=== PATIENT | male | born 1965 | race American Indian/Alaskan Native ===

== ENCOUNTER 2017-03-09 08:39 | Inpatient (IN) | payer BC ==
[2017-03-09 09:53] LABS: Basophils % (Auto) 0.8 % (0.0-1.8); Eosinophils % (Auto) 1.1 % (0.0-4.3); Hematocrit 44.1 % (35.5-45.6); Hemoglobin 15.5 gm/dl (11.8-15.2); Mean Corpuscular HGB Conc 35 % (32-34); Mean Corpuscular Hemoglobin 31 pg (28-32); Mean Corpuscular Volume 89 fl (84-94); Platelet Count 298 K/mm3 (140-440); Red Blood Count 4.96 M/mm3 (3.65-5.03); White Blood Count 5.8 K/mm3 (4.5-11.0)
[2017-03-09 09:57] LABS: Albumin 4.2 g/dL (3.9-5); Albumin/Globulin Ratio 1.1 %; Alkaline Phosphatase 57 units/L (35-129); Anion Gap 18 mmol/L; Blood Urea Nitrogen 18 mg/dL (9-20); Calcium 10.3 mg/dL (8.4-10.2); Carbon Dioxide 25 mmol/L (22-30); Chloride 97.5 mmol/L (98-107); Glucose 211 mg/dL (75-100); Lipase 77 units/L (13-60); Potassium 4.4 mmol/L (3.6-5.0); Sodium 136 mmol/L (137-145); Total Protein 7.9 g/dL (6.3-8.2)
[2017-03-09 10:05] LABS: Bilirubin,Urine NEG (Negative); Blood,Urine NEG (Negative); Ketones,Urine NEG (Negative); Leukocyte Esterase,Urine NEG (Negative); Mucus,Urine FEW /HPF; Nitrite,Urine NEG (Negative); Protein,Urine <15 mg/dL mg/dL (Negative); RBC,Urine < 1.0 /HPF (0.0-6.0); Urobilinogen,Urine < 2.0 mg/dL (<2.0)
[2017-03-09 10:14] LABS: Alanine Aminotransferase < 5 units/L (7-56)
--- NOTE | 2017-03-09 10:28 | Emergency Department Report ---
ED Abdominal Pain HPI - General Chief Complaint: Abdominal Pain Stated Complaint: STOMACH PROBLEM Time Seen by Provider: 03/09/17 10:18 Source: patient Mode of arrival: Ambulatory Limitations: No Limitations - History of Present Illness Initial Comments: 51-year-old male here with complaint of abdominal pain worsening over the course of the last several months. Patient states she has diffuse pain most often after he eats. Pain can last for a variable amount of time but usually lasted over an hour. No fevers chills nausea vomiting. He is able to tolerate food without difficulty. Said no blood in his stool and no vomiting. -: Gradual Location: diffuse Radiation: none Migration to: no migration Severity: moderate Quality: cramping Improves With: nothing Worsens With: eating - Related Data Allergies Allergy/AdvReac Type Severity Reaction Status Date / Time No Known Allergies Allergy Verified 03/09/17 11:07 ED Review of Systems ROS: Stated complaint: STOMACH PROBLEM Other details as noted in HPI Comment: All other systems reviewed and negative Constitutional: denies: chills, fever Eyes: denies: eye pain, eye discharge, vision change ENT: denies: ear pain, throat pain Respiratory: denies: cough, shortness of breath, wheezing Cardiovascular: denies: chest pain, palpitations Endocrine: no symptoms reported Gastrointestinal: abdominal pain. denies: nausea, diarrhea Genitourinary: denies: urgency, dysuria Musculoskeletal: denies: back pain, joint swelling, arthralgia Skin: denies: rash, lesions Neurological: denies: headache, weakness, paresthesias Psychiatric: denies: anxiety, depression Hematological/Lymphatic: denies: easy bleeding, easy bruising ED Past Medical Hx - Past Medical History Previous Medical History?: Yes Hx Hypertension: Yes Hx Diabetes: Yes Additional medical history: Gastric ulcers - Surgical History Past Surgical History?: No - Family History Family history: no significant - Social History Smoking Status: Never Smoker Substance Use Type: Prescribed ED Physical Exam - General Limitations: No Limitations General appearance: alert, in no apparent distress - Head Head exam: Present: atraumatic, normocephalic - Eye Eye exam: Present: normal appearance. Absent: scleral icterus, conjunctival injection - ENT ENT exam: Present: mucous membranes moist - Neck Neck exam: Present: normal inspection - Respiratory Respiratory exam: Present: normal lung sounds bilaterally. Absent: respiratory distress, wheezes, rales - Cardiovascular Cardiovascular Exam: Present: regular rate, normal rhythm, normal heart sounds. Absent: systolic murmur, diastolic murmur, rubs, gallop - GI/Abdominal GI/Abdominal exam: Present: soft, distended, normal bowel sounds. Absent: tenderness, guarding, rebound, rigid - Rectal Rectal exam: Present: deferred - Extremities Exam Extremities exam: Present: normal inspection - Back Exam Back exam: Present: normal inspection - Neurological Exam Neurological exam: Present: alert, oriented X3 - Psychiatric Psychiatric exam: Present: normal affect, normal mood - Skin Skin exam: Present: warm, dry, intact, normal color. Absent: rash ED Course Vital Signs 03/09/17 03/09/17 09:06 12:00 Temperature 98.9 F 98.6 F Pulse Rate 85 77 Respiratory 18 18 Rate Blood Pressure 153/94 Blood Pressure 163/89 [Left] O2 Sat by Pulse 98 98 Oximetry ED Medical Decision Making - Lab Data Result diagrams: 03/09/17 09:22 03/09/17 09:22 Laboratory Results - last 24 hr 03/09/17 03/09/17 03/09/17 09:14 09:22 09:22 WBC 5.8 RBC 4.96 Hgb 15.5 H Hct 44.1 MCV 89 MCH 31 MCHC 35 H RDW 13.0 L Plt Count 298 Lymph % (Auto) 36.8 H [place] % (Auto) 5.1 Eos % (Auto) 1.1 Baso % (Auto) 0.8 Lymph # 2.1 [place] # 0.3 Eos # 0.1 Baso # 0.0 Seg Neutrophils % 56.2 Seg Neutrophils # 3.3 Sodium 136 L Potassium 4.4 Chloride 97.5 L Carbon Dioxide 25 Anion Gap 18 BUN 18 Creatinine 0.8 Estimated GFR > 60 BUN/Creatinine Ratio 22.50 Glucose 211 H Calcium 10.3 H Total Bilirubin 0.20 AST < 5 L ALT < 5 L Alkaline Phosphatase 57 Total Protein 7.9 Albumin 4.2 Albumin/Globulin Ratio 1.1 Lipase 77 H Urine Color Straw Urine Turbidity Clear Urine pH 6.0 Ur Specific [place] 1.033 H Urine Protein <15 mg/dl Urine Glucose (UA) >=500 Urine Ketones Neg Urine Blood Neg Urine Nitrite Neg Urine Bilirubin Neg Urine Urobilinogen < 2.0 Ur Leukocyte Esterase Neg Urine WBC (Auto) 1.0 Urine RBC (Auto) < 1.0 Urine Mucus Few - Medical Decision Making 51-year-old male with complaint of abdominal pain. Patient states that he is having intermittent pain. Worse with eating. Patient's lipase is slightly elevated at 77. Given this finding plan a chest CT abdomen that I do not suspect find significant intra-abdominal pathology. CT shows intra-abdominal mass. Discussed this case with the hospitalist and plan to admit for inpatient biopsy of mass to determine an etiology. The patient with continued abdominal pain. Given an second dose of morphine. Portions of this chart were dictated with dictation software. There may be dictation errors contained within this note. Critical care attestation.: If time is entered above; I have spent that time in minutes in the direct care of this critically ill patient, excluding procedure time. ED Disposition Clinical Impression: Abdominal pain, Intraabdominal mass Disposition: [id number] OP ADMIT IP TO THIS HOSP Is pt being admited?: Yes Condition: Stable
[2017-03-09] MEDS ORDERED: NACL ONE (10:55)
[2017-03-09] MEDS ORDERED: MORPHINE IV ONE (12:08)
[2017-03-09] MEDS ORDERED: ZOFRAN IV ONE (12:08)
--- NOTE | 2017-03-09 12:23 | Cat Scan Report ---
CT ABDOMEN AND PELVIS WITH CONTRAST INDICATION: Abdominal pain. COMPARISON: None similar. FINDINGS: Abdomen and pelvis CT performed following intravenous administration of 100 cc of Omnipaque 300. LUNG BASES: Nonspecific distal esophageal wall prominence/thickening, not excluded for gastroesophageal reflux and/or hiatal hernia, amongst others. Mildly elevated right hemidiaphragm. ABDOMEN: Approximately 5.8 cm AP x 6.1 cm transverse x 7.3 cm craniocaudal enhancing mid mesenteric soft tissue mass with a hypodense/necrotic center noted near midline and slightly to the right as on axial images 190-250, series 2. No other size significant adenopathy or ascites with few subcentimeter retroperitoneal lymph nodes. Slight intrahepatic biliary prominence with CBD caliber approximately 1 cm at the janna hepatis, though rapidly tapering to 0.5 cm distally near the ampulla. Pancreatic duct visible in the neck/proximal body with approximately 3 mm caliber. Otherwise unremarkable liver, spleen, gallbladder, pancreas, adrenals, aorta, IVC and and kidneys. Nonspecific GI tract evaluation limited, though grossly nonobstructive. Normal appendix. Mild to moderate colonic stool/possible constipation. Small fat containing umbilical hernia with a transverse neck of 2 cm. A right paramidline fat containing ventral hernia with a transverse neck of 1.2 cm also noted, approximately 6.5 cm above the umbilicus. PELVIS: Urinary bladder, seminal vesicles, prostate and rectosigmoid within normal limits. Few small phleboliths. Fat-containing right inguinal hernia with a diameter of 2.4 cm proximally, axial image 362, series 2. Mild multilevel spinal degenerative spurring. CONCLUSION: 1. Large, approximately 6-7 cm mesenteric soft tissue lymph node mass, suspected neoplastic/metastatic, including carcinoid tumor or lymphoma, amongst others. This would be amenable to percutaneous CT-guided biopsy, if so warranted. 2. Few other findings, including small fat containing ventral hernia, amongst others, as above. Thank you for the opportunity to participate in this patient's care.
--- NOTE | 2017-03-09 13:51 | Admit Criteria Form ---
<EDMUNDO BUSH - Last Filed: 03/10/17 11:51> Admission Criteria Documentation: ABDOMINAL PAIN Clinical Indications for Admission to Inpatient Care ( [place]check or initial the applicable condition/criteria): Admission is indicated for ANY ONE of the following (1)(2)(3)(4)(5)(6): [ ]I. Surgery needed that cannot be performed on ambulatory basis [ ]II. Peritoneal signs present (eg, rebound tenderness, rigidity) [ ]III. Evaluation requires patient to not eat or drink for extended period ( eg, more than 24 hours). [X ]IV. Inpatient admission required[B] rather than observation care (see Abdominal Pain: Observation Care guideline as appropriate) because of ANY ONE of the following(7)(8)(9): [ ] a) Hemodynamic instability [ ]b) Severe pain requiring acute inpatient management [ ]c) Identification of etiology or finding that requires inpatient care (eg, aortic dissection, free air,bowel ischemia)(10) [ ]d) Absent bowel sounds with complete ileus (11) [ ]e) Signs of intestinal obstruction[C] [ ]f) Suspected toxic megacolon [ ]g) Severe electrolyte abnormalities requiring inpatient care [ ]h) High fever or infection requiring inpatient admission as indicated by ANY ONE of the following (12)(13): [ ]i) Appropriate outpatient or observation care antimicrobial treatment unavailable, not effective, or not feasible [ ]ii) Documented bacteremia [ ]iii) Temperature greater than 104.9 degrees F (40.5 degrees C) (oral) [ ]iv) Temperature greater than 103.1 degrees F (39.5 degrees C) ( oral) or less than 96.8 degrees F (36 degrees C) (rectal) that does not respond to all emergency treatment measures [ ]i) IV fluid required rather than oral rehydration to replace significant ongoing (eg, for greater than 24 hours) losses (greater than 3 L/m2 per day)(14)(15) [ ]j) Percutaneous or open drainage (eg, abscess, biliary tract) procedures [ ]k) Parenteral nutrition regimen that must be implemented on inpatient basis [X ]l) Other condition, treatment, or monitoring requiring inpatient admission Extended stay beyond goal length of stay may be needed for (1)(3)(4)(10)(16): [ ]a) Surgery (e.g., colectomy, revascularization procedure) [ ]b) Persistent abdominal pain with suspected intra-abdominal process [ ]c) Diagnosed condition requiring continued stay (e.g., pancreatitis, complicated diverticulitis) The original [facility] content created by [facility] has been revised. The portions of the content which have been revised are identified through the use of italic text or in bold, and [facility] has neither reviewed nor approved the modified material.All other unmodified content is copyright [facility]. Please see references footnoted in the original [facility] edition 2017 Admission Criteria Met: Yes <ORLY ROMAN - Last Filed: 03/12/17 16:38> Admission Criteria Documentation: I am administratively signing this note. This note has no clinical bearing on the patient's admission status.
--- NOTE | 2017-03-09 20:36 | History and Physical Report ---
History of Present Illness Date of examination: 03/09/17 Date of admission: 03/09/17 Chief complaint: Abd pain off and on for one month History of present illness: - History of Present Illness 51-year-old male here with complaint of abdominal pain worsening over the course of the last several months. Patient states he has diffuse pain most often after he eats. Pain can last for a variable amount of time but usually lasted over an hour. No fevers chills nausea vomiting. He is able to tolerate food without difficulty. Said no blood in his stool and no vomiting.Pain is 7/ 10.Intermittent in nature.Precipitated by eating.Reieving factor-not eating .No weight loss. Past Medical History Hx Hypertension: Yes Hx Diabetes: Yes Additional medical history: Gastric ulcers -Surgical History Past Surgical History?: No Family History Family history: no significant - Social History Smoking Status: Never Smoker Substance Use Type: Prescribed Review of Systems Stated complaint: STOMACH PROBLEM Other details as noted in HPI Comment: All other systems reviewed and negative Constitutional: denies: chills, fever Eyes: denies: eye pain, eye discharge, vision change ENT: denies: ear pain, throat pain Respiratory: denies: cough, shortness of breath, wheezing Cardiovascular: denies: chest pain, palpitations Endocrine: no symptoms reported Gastrointestinal: abdominal pain. denies: nausea, diarrhea Genitourinary: denies: urgency, dysuria Musculoskeletal: denies: back pain, joint swelling, arthralgia Skin: denies: rash, lesions Neurological: denies: headache, weakness, paresthesias Psychiatric: denies: anxiety, depression Hematological/Lymphatic: denies: easy bleeding, easy bruising Medications and Allergies Allergies Allergy/AdvReac Type Severity Reaction Status Date / Time No Known Allergies Allergy Verified 03/09/17 11:07 Home Medications Medication Instructions Recorded Confirmed Last Taken Type Brimonidine 0.15% [Alphagan P 1 drop OU BID 03/09/17 03/09/17 Unknown History 0.15%] Canagliflozin [Invokana] 100 mg PO QDAY 03/09/17 03/09/17 Unknown History Fenofibrate [Tricor] 145 mg PO QHS 03/09/17 03/09/17 Unknown History Glimepiride [Amaryl] 4 mg PO QDAY 03/09/17 03/09/17 Unknown History Lisinopril [Zestril] 40 mg PO QDAY 03/09/17 03/09/17 Unknown History Saxagliptin HCl/Metformin HCl 1 tab PO QDAY 03/09/17 03/09/17 Unknown History [Kombiglyze XR 2.5-1,000 mg] Tadalafil [Cialis] 5 mg PO QDAY 03/09/17 03/09/17 Unknown History Travoprost (Benzalkonium) 1 drop OU QHS 03/09/17 03/09/17 Unknown History [Travoprost 0.004% Eye Drop] Exam - Physical Exam Narrative exam: Lying comfortably - Constitutional Vitals: Temp Pulse Resp BP Pulse Ox 98 F 65 17 144/83 98 03/09/17 16:02 03/09/17 16:02 03/09/17 16:02 03/09/17 16:02 03/09/17 16:02 General appearance: Present: no acute distress, well-nourished - EENT Eyes: Present: PERRL ENT: hearing intact, clear oral mucosa - Neck Neck: Present: supple, normal ROM - Respiratory Respiratory effort: normal Respiratory: bilateral: CTA - Cardiovascular Heart rate: 80 Rhythm: regular Heart Sounds: Present: S1 & S2. Absent: rub, click - Extremities Extremities: no ischemia, pulses intact, pulses symmetrical, No edema Peripheral Pulses: within normal limits - Abdominal General gastrointestinal: Present: soft, non-tender, non-distended, normal bowel sounds Localized gastrointestinal: mass: epigastric periumbilical (Firm ) Male genitourinary: Present: normal - Rectal Rectal Exam: other (ob negative) - Integumentary Integumentary: Present: clear, warm, dry - Musculoskeletal Musculoskeletal: gait normal, strength equal bilaterally - Psychiatric Psychiatric: appropriate mood/affect, intact judgment & insight - Neurologic Neurologic: CNII-XII intact, moves all extremities Results - Labs CBC & Chem 7: 03/09/17 09:22 03/09/17 09:22 Labs: Laboratory Last Values WBC 5.8 K/mm3 (4.5-11.0) 03/09/17 09:22 RBC 4.96 M/mm3 (3.65-5.03) 03/09/17 09:22 Hgb 15.5 gm/dl (11.8-15.2) H 03/09/17 09:22 Hct 44.1 % (35.5-45.6) 03/09/17 09:22 MCV 89 fl (84-94) 03/09/17 09:22 MCH 31 pg (28-32) 03/09/17 09:22 MCHC 35 % (32-34) H 03/09/17 09:22 RDW 13.0 % (13.2-15.2) L 03/09/17 09:22 Plt Count 298 K/mm3 (140-440) 03/09/17 09:22 Lymph % (Auto) 36.8 % (13.4-35.0) H 03/09/17 09:22 [place] % (Auto) 5.1 % (0.0-7.3) 03/09/17 09:22 Eos % (Auto) 1.1 % (0.0-4.3) 03/09/17 09:22 Baso % (Auto) 0.8 % (0.0-1.8) 03/09/17 09:22 Lymph # 2.1 K/mm3 (1.2-5.4) 03/09/17 09:22 [place] # 0.3 K/mm3 (0.0-0.8) 03/09/17 09:22 Eos # 0.1 K/mm3 (0.0-0.4) 03/09/17 09:22 Baso # 0.0 K/mm3 (0.0-0.1) 03/09/17 09:22 Seg Neutrophils % 56.2 % (40.0-70.0) 03/09/17 09:22 Seg Neutrophils # 3.3 K/mm3 (1.8-7.7) 03/09/17 09:22 Sodium 136 mmol/L (137-145) L 03/09/17 09:22 Potassium 4.4 mmol/L (3.6-5.0) 03/09/17 09:22 Chloride 97.5 mmol/L (98-107) L 03/09/17 09:22 Carbon Dioxide 25 mmol/L (22-30) 03/09/17 09:22 Anion Gap 18 mmol/L 03/09/17 09:22 BUN 18 mg/dL (9-20) 03/09/17 09:22 Creatinine 0.8 mg/dL (0.8-1.5) 03/09/17 09:22 Estimated GFR > 60 ml/min 03/09/17 09:22 BUN/Creatinine Ratio 22.50 % 03/09/17 09:22 Glucose 211 mg/dL (75-100) H 03/09/17 09:22 Calcium 10.3 mg/dL (8.4-10.2) H 03/09/17 09:22 Total Bilirubin 0.20 mg/dL (0.1-1.2) 03/09/17 09:22 AST < 5 units/L (5-40) L 03/09/17 09:22 ALT < 5 units/L (7-56) L 03/09/17 09:22 Alkaline Phosphatase 57 units/L (35-129) 03/09/17 09:22 Total Protein 7.9 g/dL (6.3-8.2) 03/09/17 09:22 Albumin 4.2 g/dL (3.9-5) 03/09/17 09:22 Albumin/Globulin Ratio 1.1 % 03/09/17 09:22 Lipase 77 units/L (13-60) H 03/09/17 09:22 Urine Color Straw (Yellow) 03/09/17 09:14 Urine Turbidity Clear (Clear) 03/09/17 09:14 Urine pH 6.0 (5.0-7.0) 03/09/17 09:14 Ur Specific [place] 1.033 (1.003-1.030) H 03/09/17 09:14 Urine Protein <15 mg/dl mg/dL (Negative) 03/09/17 09:14 Urine Glucose (UA) >=500 mg/dL (Negative) 03/09/17 09:14 Urine Ketones Neg mg/dL (Negative) 03/09/17 09:14 Urine Blood Neg (Negative) 03/09/17 09:14 Urine Nitrite Neg (Negative) 03/09/17 09:14 Urine Bilirubin Neg (Negative) 03/09/17 09:14 Urine Urobilinogen < 2.0 mg/dL (<2.0) 03/09/17 09:14 Ur Leukocyte Esterase Neg (Negative) 03/09/17 09:14 Urine WBC (Auto) 1.0 /HPF (0.0-6.0) 03/09/17 09:14 Urine RBC (Auto) < 1.0 /HPF (0.0-6.0) 03/09/17 09:14 Urine Mucus Few /HPF 03/09/17 09:14 Short CBC 03/09/17 Range/Units 09:22 WBC 5.8 (4.5-11.0) K/mm3 Hgb 15.5 H (11.8-15.2) gm/dl Hct 44.1 (35.5-45.6) % Plt Count 298 (140-440) K/mm3 BMP 03/09/17 09:22 Sodium 136 L Potassium 4.4 Chloride 97.5 L Carbon Dioxide 25 BUN 18 Creatinine 0.8 Glucose 211 H Calcium 10.3 H Liver Function 03/09/17 Range/Units 09:22 Total Bilirubin 0.20 (0.1-1.2) mg/dL AST < 5 L (5-40) units/L ALT < 5 L (7-56) units/L Alkaline Phosphatase 57 (35-129) units/L Albumin 4.2 (3.9-5) g/dL Urine 03/09/17 Range/Units 09:14 Urine Color Straw (Yellow) Urine pH 6.0 (5.0-7.0) Ur Specific [place] 1.033 H (1.003-1.030) Urine Protein <15 mg/dl (Negative) mg/dL Urine Glucose (UA) >=500 (Negative) mg/dL - Imaging and Cardiology EKG: report reviewed CT scan - abdomen: report reviewed (6 to 7 cm mesenteric soft tissue /Lymph node mass suspected neoplastic/metastatic, including carcinoid tumor or Lymphoma.) Assessment and Plan Advance Directives: Yes (Full code) VTE prophylaxis?: Chemical Plan of care discussed with patient/family: Yes - Patient Problems (1) Intraabdominal mass Current Visit: Yes Status: Acute Plan to address problem: Ordered CT guided biopsy. Oncology consult requested. Symptomatic treatment for now. DDX-Lymphoma versus colon cancer (2) HTN (hypertension) Current Visit: Yes Status: Chronic Qualifiers: Hypertension type: essential hypertension Qualified Code(s): I10 - Essential (primary) hypertension Plan to address problem: Cont antihypertensives (3) T2DM (type 2 diabetes mellitus) Current Visit: Yes Status: Chronic Qualifiers: Diabetes mellitus complication status: without complication Diabetes mellitus complication detail: D Diabetic retinopathy severity: D Proliferative retinopathy type: P Diabetes mellitus macular edema: D Diabetes mellitus halfway insulin use: without halfway use Laterality: L Chronic kidney disease stage: C Qualified Code(s): E11.9 - Type 2 diabetes mellitus without complications Plan to address problem: Cont oral hypoglycemics and coverage.Check A1c. (4) DVT prophylaxis Current Visit: Yes Status: Acute Plan to address problem: Initiated Lovenox 40 mg sq qd
[2017-03-09] MEDS ORDERED: TYLENOL PO PRN (20:46)
[2017-03-09] MEDS ORDERED: MILK OF MAGNESIA PO PRN (20:46)
[2017-03-09] MEDS ORDERED: ZOFRAN IV PRN (20:46)
[2017-03-09] MEDS ORDERED: DULCOLAX PR PRN (20:46)
[2017-03-09] MEDS ORDERED: NOVOLOG SUB-Q ONE (20:52)
[2017-03-09] MEDS ORDERED: NACL 0.9% 1000 ML 1,000 ML IV SCH (21:00)
[2017-03-09] MEDS ORDERED: PROTONIX IV SCH (22:00)
[2017-03-09] MEDS ORDERED: XALATAN 0.005% OU SCH (22:00)
[2017-03-09] MEDS ORDERED: TRICOR PO SCH (22:00)
[2017-03-09] MEDS: ALPHAGAN P 0.15% OU SCH (23:21)
[2017-03-10 07:19] LABS: Partial Thromboplastin Time 29.2 Sec. (24.2-36.6)
[2017-03-10] MEDS ORDERED: AMARYL PO SCH (08:00)
[2017-03-10] MEDS ORDERED: GLUCOPHAGE XR PO SCH (08:00)
--- NOTE | 2017-03-10 08:53 | Progress Note ---
Assessment and Plan Assessment and plan: 51-year-old male With past medical hx of HTN, DM admitted with worsening abdominal pain over several months, worse with food, rated 7/10 and on admission noted to have mesenteric soft tissue lymph node mass 6-7cm in size. Intraabdominal mass with Mesenteric enlarged lymphnode * Agree with CT guided biopsy * GI and Oncology consult Peritoneal irritation secondary to above * Pain control Type 2 uncontrolled DM * Discontinue metformin and amaryl to prevent acidosis and hypoglycemic episodeds * start on Levemir qhs and sliding scale coverage HTN * Continue BP control DVT/GI prophy Plan of care discussed with patient in detail Hospitalist Physical - Constitutional Vitals: Temp Pulse Resp BP Pulse Ox 98.7 F 76 18 120/76 98 03/10/17 08:00 03/10/17 08:00 03/10/17 08:00 03/10/17 08:00 03/10/17 08:00 General appearance: Present: no acute distress, well-nourished Results - Labs CBC & Chem 7: 03/09/17 09:22 03/09/17 09:22 Labs: Laboratory Last Values WBC 5.8 K/mm3 (4.5-11.0) 03/09/17 09:22 RBC 4.96 M/mm3 (3.65-5.03) 03/09/17 09:22 Hgb 15.5 gm/dl (11.8-15.2) H 03/09/17 09:22 Hct 44.1 % (35.5-45.6) 03/09/17 09:22 MCV 89 fl (84-94) 03/09/17 09:22 MCH 31 pg (28-32) 03/09/17 09:22 MCHC 35 % (32-34) H 03/09/17 09:22 RDW 13.0 % (13.2-15.2) L 03/09/17 09:22 Plt Count 298 K/mm3 (140-440) 03/09/17 09:22 Lymph % (Auto) 36.8 % (13.4-35.0) H 03/09/17 09:22 [place] % (Auto) 5.1 % (0.0-7.3) 03/09/17 09:22 Eos % (Auto) 1.1 % (0.0-4.3) 03/09/17 09:22 Baso % (Auto) 0.8 % (0.0-1.8) 03/09/17 09:22 Lymph # 2.1 K/mm3 (1.2-5.4) 03/09/17 09:22 [place] # 0.3 K/mm3 (0.0-0.8) 03/09/17 09:22 Eos # 0.1 K/mm3 (0.0-0.4) 03/09/17 09:22 Baso # 0.0 K/mm3 (0.0-0.1) 03/09/17 09:22 Seg Neutrophils % 56.2 % (40.0-70.0) 03/09/17 09:22 Seg Neutrophils # 3.3 K/mm3 (1.8-7.7) 03/09/17 09:22 PT 13.1 Sec. (12.2-14.9) 03/10/17 06:49 INR 1.00 (0.87-1.13) 03/10/17 06:49 APTT 29.2 Sec. (24.2-36.6) 03/10/17 06:49 Sodium 136 mmol/L (137-145) L 03/09/17 09:22 Potassium 4.4 mmol/L (3.6-5.0) 03/09/17 09:22 Chloride 97.5 mmol/L (98-107) L 03/09/17 09:22 Carbon Dioxide 25 mmol/L (22-30) 03/09/17 09:22 Anion Gap 18 mmol/L 03/09/17 09:22 BUN 18 mg/dL (9-20) 03/09/17 09:22 Creatinine 0.8 mg/dL (0.8-1.5) 03/09/17 09:22 Estimated GFR > 60 ml/min 03/09/17 09:22 BUN/Creatinine Ratio 22.50 % 03/09/17 09:22 Glucose 211 mg/dL (75-100) H 03/09/17 09:22 Calcium 10.3 mg/dL (8.4-10.2) H 03/09/17 09:22 Total Bilirubin 0.20 mg/dL (0.1-1.2) 03/09/17 09:22 AST < 5 units/L (5-40) L 03/09/17 09:22 ALT < 5 units/L (7-56) L 03/09/17 09:22 Alkaline Phosphatase 57 units/L (35-129) 03/09/17 09:22 Total Protein 7.9 g/dL (6.3-8.2) 03/09/17 09:22 Albumin 4.2 g/dL (3.9-5) 03/09/17 09:22 Albumin/Globulin Ratio 1.1 % 03/09/17 09:22 Lipase 77 units/L (13-60) H 03/09/17 09:22 Urine Color Straw (Yellow) 03/09/17 09:14 Urine Turbidity Clear (Clear) 03/09/17 09:14 Urine pH 6.0 (5.0-7.0) 03/09/17 09:14 Ur Specific [place] 1.033 (1.003-1.030) H 03/09/17 09:14 Urine Protein <15 mg/dl mg/dL (Negative) 03/09/17 09:14 Urine Glucose (UA) >=500 mg/dL (Negative) 03/09/17 09:14 Urine Ketones Neg mg/dL (Negative) 03/09/17 09:14 Urine Blood Neg (Negative) 03/09/17 09:14 Urine Nitrite Neg (Negative) 03/09/17 09:14 Urine Bilirubin Neg (Negative) 03/09/17 09:14 Urine Urobilinogen < 2.0 mg/dL (<2.0) 03/09/17 09:14 Ur Leukocyte Esterase Neg (Negative) 03/09/17 09:14 Urine WBC (Auto) 1.0 /HPF (0.0-6.0) 03/09/17 09:14 Urine RBC (Auto) < 1.0 /HPF (0.0-6.0) 03/09/17 09:14 Urine Mucus Few /HPF 03/09/17 09:14
[2017-03-10] MEDS ORDERED: VERSED IV ONE ×2 (09:33)
[2017-03-10] MEDS ORDERED: SUBLIMAZE ONE (09:33)
[2017-03-10] MEDS ORDERED: NON-FORMULARY (Canagliflozin [Invokana] 100 MG) PO SCH (10:00)
[2017-03-10] MEDS ORDERED: SAXAGLIPTIN HCL PO SCH (10:00)
[2017-03-10] MEDS ORDERED: ZESTRIL PO SCH (10:00)
[2017-03-10] MEDS ORDERED: METFORMIN HCL PO SCH (10:00)
[2017-03-10] MEDS ORDERED: PEPCID IV SCH (10:00)
[2017-03-10] MEDS ORDERED: TRADJENTA PO SCH (10:00)
[2017-03-10] MEDS ORDERED: SUBLIMAZE IV ONE (11:00)
--- NOTE | 2017-03-10 11:08 | Cat Scan Report ---
CT-guided biopsy of mesenteric abdominal mass. Procedure: The patient's skin surface overlying the right abdomen was prepped and draped using sterile technique. Local anesthetic was injected into the skin. Using CT guidance, a 17-gauge sheath needle was advanced into the mass. 5 passes were made using an 18-gauge biopsy gun. Adequate tissue cores were obtained. Initial touch prep slides demonstrated abnormal lymphoid cells and the procedure was terminated. The Intraservice time was 45 minutes. Independent cardiorespiratory monitoring was performed by the outpatient procedure nurse for 45 minutes, supervised by me. The patient tolerated the procedure well clinically. Post biopsy images demonstrated no evidence of significant hemorrhage or other signs of complications. The patient was sent to the outpatient procedure unit for short term observation.
--- NOTE | 2017-03-10 11:12 | Short Stay Summary ---
Short Stay Documentation Date of service: 03/10/17 - History Principal diagnosis: Abd. mass - Allergies and Medications Current Medications: Allergies No Known Allergies Allergy (Verified 03/09/17 11:07) Home Medications Medication Instructions Recorded Confirmed Last Taken Type Brimonidine 0.15% [Alphagan P 1 drop OU BID 03/09/17 03/09/17 Unknown History 0.15%] Canagliflozin [Invokana] 100 mg PO QDAY 03/09/17 03/09/17 Unknown History Fenofibrate [Tricor] 145 mg PO QHS 03/09/17 03/09/17 Unknown History Glimepiride [Amaryl] 4 mg PO QDAY 03/09/17 03/09/17 Unknown History Lisinopril [Zestril] 40 mg PO QDAY 03/09/17 03/09/17 Unknown History Saxagliptin HCl/Metformin HCl 1 tab PO QDAY 03/09/17 03/09/17 Unknown History [Kombiglyze XR 2.5-1,000 mg] Tadalafil [Cialis] 5 mg PO QDAY 03/09/17 03/09/17 Unknown History Travoprost (Benzalkonium) 1 drop OU QHS 03/09/17 03/09/17 Unknown History [Travoprost 0.004% Eye Drop] Active Medications Acetaminophen (Tylenol) 650 mg PO Q4H PRN PRN Reason: Pain MILD(1-3)/Fever >100.5/[place] Bisacodyl (Dulcolax) 10 mg [place] QDAY PRN PRN Reason: Constipation unrelieved by MOM Brimonidine Tartrate (Alphagan P 0.15%) 1 drops OU BID [facility] Last Admin: 03/09/17 23:21 Dose: Not Given Famotidine (Pepcid) 20 mg IV BID [place] Fenofibrate (Tricor) 145 mg PO QHS [facility] Last Admin: 03/09/17 23:28 Dose: 145 mg Insulin Aspart (Novolog) 0 units SUB-Q ACHS [facility] PRN Reason: Protocol Insulin Detemir (Levemir) 15 units SUB-Q QHS [facility] Latanoprost (Xalatan 0.005%) 1 drops OU QHS [facility] Last Admin: 03/09/17 23:21 Dose: Not Given Linagliptin (Tradjenta) 5 mg PO QDAY [facility] Lisinopril (Zestril) 40 mg PO QDAY [facility] Magnesium Hydroxide (Milk Of Magnesia) 30 ml PO Q4H PRN PRN Reason: Constipation Miscellaneous Medication (Canagliflozin [Invokana]) 100 mg PO QDAY [facility] Ondansetron HCl (Zofran) 4 mg IV Q8H PRN PRN Reason: N/V unrelieved by Reglan - Physical exam General appearance: no acute distress Extremities: no ischemia, pulses intact, pulses symmetrical, No edema - Brief post op/procedure progress note Date of procedure: 03/10/17 Pre-op diagnosis: Abd. mass Post-op diagnosis: same Anesthesia: local Surgeon: NORMAN MILTON Estimated blood loss: none Specimen disposition: to lab Condition: stable - Disposition Condition at discharge: Good Disposition: DC-01 TO HOME OR SELFCARE Short Stay Discharge Plan Follow up with: PRIMARY CARE, [Primary Care Provider] - 3-5 Days
--- NOTE | 2017-03-10 12:54 | Hem/Onc Consultation ---
History of Present Illness - Reason for Consult Consult date: 03/10/17 - History of Present Illness He feels well overall. No complains. Admitted wit abdominal pain which has disappeared. No complains currently. Past History Past Medical History: diabetes, hypertension (elevated cholesterol) Past Surgical History: Other (Bleeding ulcer 6 years ago) Medications and Allergies Allergies Allergy/AdvReac Type Severity Reaction Status Date / Time No Known Allergies Allergy Verified 03/09/17 11:07 Home Medications Medication Instructions Recorded Confirmed Last Taken Type Brimonidine 0.15% [Alphagan P 1 drop OU BID 03/09/17 03/09/17 Unknown History 0.15%] Canagliflozin [Invokana] 100 mg PO QDAY 03/09/17 03/09/17 Unknown History Fenofibrate [Tricor] 145 mg PO QHS 03/09/17 03/09/17 Unknown History Glimepiride [Amaryl] 4 mg PO QDAY 03/09/17 03/09/17 Unknown History Lisinopril [Zestril] 40 mg PO QDAY 03/09/17 03/09/17 Unknown History Saxagliptin HCl/Metformin HCl 1 tab PO QDAY 03/09/17 03/09/17 Unknown History [Kombiglyze XR 2.5-1,000 mg] Tadalafil [Cialis] 5 mg PO QDAY 03/09/17 03/09/17 Unknown History Travoprost (Benzalkonium) 1 drop OU QHS 03/09/17 03/09/17 Unknown History [Travoprost 0.004% Eye Drop] Active Meds: Active Medications Acetaminophen (Tylenol) 650 mg PO Q4H PRN PRN Reason: Pain MILD(1-3)/Fever >100.5/[place] Bisacodyl (Dulcolax) 10 mg [place] QDAY PRN PRN Reason: Constipation unrelieved by MOM Brimonidine Tartrate (Alphagan P 0.15%) 1 drops OU BID [facility] Last Admin: 03/09/17 23:21 Dose: Not Given Famotidine (Pepcid) 20 mg IV BID [place] Fenofibrate (Tricor) 145 mg PO QHS [facility] Last Admin: 03/09/17 23:28 Dose: 145 mg Insulin Aspart (Novolog) 0 units SUB-Q ACHS [facility] PRN Reason: Protocol Insulin Detemir (Levemir) 15 units SUB-Q QHS [facility] Latanoprost (Xalatan 0.005%) 1 drops OU QHS [facility] Last Admin: 03/09/17 23:21 Dose: Not Given Linagliptin (Tradjenta) 5 mg PO QDAY [facility] Lisinopril (Zestril) 40 mg PO QDAY [facility] Magnesium Hydroxide (Milk Of Magnesia) 30 ml PO Q4H PRN PRN Reason: Constipation Miscellaneous Medication (Canagliflozin [Invokana]) 100 mg PO QDAY [facility] Ondansetron HCl (Zofran) 4 mg IV Q8H PRN PRN Reason: N/V unrelieved by Reglan Review of Systems All systems: negative (old pain) Exam - Constitutional Vitals: Last Vital Signs Temp 98.7 F 03/10/17 08:00 Pulse 77 03/10/17 10:33 Resp 12 03/10/17 10:33 BP 134/76 03/10/17 10:33 Pulse Ox 99 03/10/17 10:33 Pain Intensity (0-10): denies any pain General appearance: no acute distress - EENT Eyes: PERRL ENT: hearing intact Lymph node exam: negative cervical - Neck Neck: supple, normal ROM - Respiratory Respiratory: bilateral: CTA - Cardiovascular Rhythm: regular Extremities: no ischemia - Gastrointestinal General gastrointestinal: Present: soft - Genitourinary Male genitourinary: Present: normal - Integumentary Integumentary: clear - Musculoskeletal Musculoskeletal: strength equal bilaterally - Neurologic Neurologic: CNII-XII intact - Psychiatric Psychiatric: appropriate mood/affect Results - Labs lab Results: Laboratory Results - last 24 hr 03/10/17 03/10/17 06:49 12:04 PT 13.1 INR 1.00 APTT 29.2 POC Glucose 313 H - Imaging and cardiology CT scan - abdomen: report reviewed, image reviewed Assessment and Plan - Patient Problems (1) Intraabdominal mass Current Visit: Yes Status: Acute Plan to address problem: He had biopsy. Gave appt to see us next Thursday or . Possibly GIST vs lymphoma. Met with his . They agree to follow up plans.
--- NOTE | 2017-03-10 14:07 | Gastroenterology Consultation ---
<SADE SHELBY - Last Filed: 03/10/17 14:09> History of Present Illness - Reason for Consult Consult date: 03/10/[address] scan, abdominal pain Requesting physician: VLADIMIR DE SOUZA - History of Present Illness Mr. Gilman is a 51 y/o male admitted with a 1 week hx of abdominal cramping after he eats. No N/V, no diarrhea, no evidence of bleeding. He endorses approximately a 10 lbs weight loss, but states he has been trying to lose weight 2/[address] scan on admission revealing 5x6 cm soft tissues mesenteric mass vs lymph node. He has been seen by oncology and s/p CT guided biopsy today. He denies current abdominal pain. He reports he once had a " bleeding ulcer" several years ago. His pain is generalized and described as cramping. He has no loss of appetite. Past History Past Medical History: diabetes, hypertension (elevated cholesterol) Past Surgical History: Other (Bleeding ulcer 6 years ago) Social history: no significant social history Family history: no significant family history Medications and Allergies Allergies Allergy/AdvReac Type Severity Reaction Status Date / Time No Known Allergies Allergy Verified 03/09/17 11:07 Home Medications Medication Instructions Recorded Confirmed Last Taken Type Brimonidine 0.15% [Alphagan P 1 drop OU BID 03/09/17 03/09/17 Unknown History 0.15%] Canagliflozin [Invokana] 100 mg PO QDAY 03/09/17 03/09/17 Unknown History Fenofibrate [Tricor] 145 mg PO QHS 03/09/17 03/09/17 Unknown History Glimepiride [Amaryl] 4 mg PO QDAY 03/09/17 03/09/17 Unknown History Lisinopril [Zestril] 40 mg PO QDAY 03/09/17 03/09/17 Unknown History Saxagliptin HCl/Metformin HCl 1 tab PO QDAY 03/09/17 03/09/17 Unknown History [Kombiglyze XR 2.5-1,000 mg] Tadalafil [Cialis] 5 mg PO QDAY 03/09/17 03/09/17 Unknown History Travoprost (Benzalkonium) 1 drop OU QHS 03/09/17 03/09/17 Unknown History [Travoprost 0.004% Eye Drop] Active Meds: Active Medications Acetaminophen (Tylenol) 650 mg PO Q4H PRN PRN Reason: Pain MILD(1-3)/Fever >100.5/[place] Bisacodyl (Dulcolax) 10 mg [place] QDAY PRN PRN Reason: Constipation unrelieved by MOM Brimonidine Tartrate (Alphagan P 0.15%) 1 drops OU BID [facility] Last Admin: 03/09/17 23:21 Dose: Not Given Famotidine (Pepcid) 20 mg IV BID [facility] Fenofibrate (Tricor) 145 mg PO QHS [facility] Last Admin: 03/09/17 23:28 Dose: 145 mg Insulin Aspart (Novolog) 0 units SUB-Q ACHS [facility] PRN Reason: Protocol Insulin Detemir (Levemir) 15 units SUB-Q QHS [facility] Latanoprost (Xalatan 0.005%) 1 drops OU QHS [facility] Last Admin: 03/09/17 23:21 Dose: Not Given Linagliptin (Tradjenta) 5 mg PO QDAY [facility] Lisinopril (Zestril) 40 mg PO QDAY [facility] Magnesium Hydroxide (Milk Of Magnesia) 30 ml PO Q4H PRN PRN Reason: Constipation Miscellaneous Medication (Canagliflozin [Invokana]) 100 mg PO QDAY [facility] Ondansetron HCl (Zofran) 4 mg IV Q8H PRN PRN Reason: N/V unrelieved by Reglan Review of Systems - Review of Systems Constitutional: weight loss, weakness Gastrointestinal: abdominal pain Exam - Constitutional Vital Signs: Temp Pulse Resp BP Pulse Ox 98.7 F 77 12 134/76 99 03/10/17 08:00 03/10/17 10:33 03/10/17 10:33 03/10/17 10:33 03/10/17 10:33 General appearance: no acute distress - EENT Eyes: EOM intact ENT: hearing intact - Respiratory Respiratory: bilateral: CTA - Cardiovascular Rhythm: regular Heart Sounds: Present: S1 & S2 Extremities: pulses intact, No edema - Gastrointestinal General gastrointestinal: Present: soft, non-tender, non-distended - Integumentary Integumentary: Present: warm, dry - Neurologic Neurological: alert and oriented x3 - Psychiatric Psychiatric: appropriate mood/affect - Labs CBC & Chem 7: 03/09/17 09:22 03/09/17 09:22 Lab Results: Laboratory Results - last 24 hr 03/10/17 03/10/17 06:49 12:04 PT 13.1 INR 1.00 APTT 29.2 POC Glucose 313 H Assessment and Plan 1. Abdominal Pain- now resolved 2. Abnormal CT scan. -S/P biopsy for mesenteric/ lymph node mass. -Seen by oncology with follow up as an outpatient in 1 week -No prior colonoscopy, and pending results of path, will need one as outpatient > age 50. -The patient is eating with no abdominal complaints at this time. -OK to DC per GI standpoint with follow up in clinic in 1 month, office information provided and d/w patient at bedside. <JARRED VANG - Last Filed: 03/10/17 23:13> Exam - Constitutional Vital Signs: Temp Pulse Resp BP Pulse Ox 98.3 F 78 18 122/78 99 03/10/17 16:00 03/10/17 16:00 03/10/17 16:00 03/10/17 16:00 03/10/17 10:33 - Labs CBC & Chem 7: 03/09/17 09:22 03/09/17 09:22 Lab Results: Laboratory Results - last 24 hr 03/10/17 03/10/17 03/10/17 06:49 12:04 16:11 PT 13.1 INR 1.00 APTT 29.2 POC Glucose 313 H 176 H Assessment and Plan Patient seen and examined. Agree with note by Anika Shelby. s/p biopsy of abdominal mass (mesenteric vs lymp note). Patient planned for discharge today. Will need outpatient colonoscopy (timing based on path results). F/u in GI clinic in 2 weeks.
--- NOTE | 2017-03-10 14:25 | Discharge Summary ---
Providers - Providers Date of Admission: 03/09/17 20:46 Date of discharge: 03/10/17 Attending physician: GORAN DELEON MD 03/09/17 20:49 Consult to Physician [CONS] Routine Consulting Provider: SUNITA VASQUEZ Reason For Exam: abdominal mass Place consult to:: DR. VASQUEZ Notified:: [employer] Phone number called:: [phone] Was contact made?: Yes If yes, spoke with:: YOBANY Time called:: 08:27 Comment:: LEANN NOTIFIED 03/10/17 08:53 Consult to Physician [CONS] Routine Consulting Provider: JARRED VANG Reason For Exam: mesentaric lymphnode ?colon mass Place consult to:: LUCILA ALVAREZ Notified:: LUCILA Phone number called:: IN HOUSE Was contact made?: Yes If yes, spoke with:: LUCILA Time called:: 09:14 Primary care physician: DEMOLITION WORKER Hospitalization Reason for admission: PERSISTENT NAUSEA WITH VOMITING Condition: Stable Hospital course: 51-year-old male With past medical hx of HTN, DM admitted with worsening abdominal pain over several months, worse with food, rated 7/10 and on admission noted to have mesenteric soft tissue lymph node mass 6-7cm in size. Patient proceeded to have a CT-guided biopsy. Was seen by GI recommendation for an outpatient colonoscopy and also seen by employment assistant with recommendation to follow outpatient. Intraabdominal mass with Mesenteric enlarged lymphnode Possibly GIST vs lymphoma. Peritoneal irritation secondary to above Type 2 uncontrolled DM HTN Disposition: DC- TO HOME OR SELFCARE Time spent for discharge: 35 MINS Core Measure Documentation - Palliative Care Palliative Care/ Comfort Measures: Not Applicable - Core Measures Any of the following diagnoses?: none - VTE Discharge Requirements Deep Vein Thrombosis/Pulmonary Embolism Present on Admission: No Exam - Physical Exam Narrative exam: VITAL SIGNS: Reviewed. GENERAL: The patient appeared well nourished and normally developed. Vital signs as documented. HEAD: No signs of head trauma. EYES: Pupils are equal. Extraocular motions intact. EARS: Hearing grossly intact. MOUTH: Oropharynx is normal. NECK: No adenopathy, no JVD. CHEST: Chest with clear breath sounds bilaterally. No wheezes, rales, or rhonchi. CARDIAC: Regular rate and rhythm. S1 and S2, without murmurs, gallops, or rubs. VASCULAR: No Edema. Peripheral pulses normal and equal in all extremities. ABDOMEN: Soft, without detectable tenderness. Mildly distended. Noted with dressing. No drainage. No rebound or guarding, and no masses palpated. Bowel Sounds normal. MUSCULOSKELETAL: Good range of motion of all major joints. Extremities without clubbing, cyanosis or edema. NEUROLOGIC EXAM: Alert and oriented x 3. No focal sensory or strength deficits. Speech normal. Follows commands. PSYCHIATRIC: Mood normal. SKIN: No rash or lesions. - Constitutional Vitals: Temp Pulse Resp BP Pulse Ox 98.7 F 77 12 119/72 99 03/10/17 08:00 03/10/17 10:33 03/10/17 10:33 03/10/17 14:12 03/10/17 10:33 Plan Activity: advance as tolerated, fall precautions Diet: diabetic Special Instructions: record daily BP diary, record blood sugar diary Follow up with: PRIMARY MD PASHA [Primary Care Provider] - 3-5 Days JARRED VANG MD [Staff Physician] - 7 Days SUNITA VASQEUZ MD [Staff Physician] - 48 Hours
[2017-03-10] MEDS: NOVOLOG SUB-Q SCH ×2 (15:26→16:54)
[2017-03-10] MEDS: ALPHAGAN P 0.15% OU SCH (15:27)
[2017-03-10 16:26] VITALS: BP 122/78
[2017-03-10] MEDS ORDERED: Fluarix Quad 2017-2018(36 MOS+) IM ONE (17:00)
[2017-03-10] MEDS ORDERED: LEVEMIR SUB-Q SCH (22:00)
== END 2017-03-10 17:38 | disposition home or self-care (01) | DRG 823 ==
LOC: ED 08:39 → 3A 20:46
PROVIDERS: ADMIT Internal Medicine; ATTEND Internal Medicine
PROC: 07BB3ZX Excision of Mesenteric Lymphatic, Percutaneous Approach, Diagnostic (ICD-10-PCS; principal; 2017-03-10)
PROC: 3E0234Z Introduction of Serum, Toxoid and Vaccine into Muscle, Percutaneous Approach (ICD-10-PCS; 2017-03-10)
DX: C85.93 Non-Hodgkin lymphoma, unspecified, intra-abdominal lymph nodes (principal); K65.9 Peritonitis, unspecified; C49.A9 Gastrointestinal stromal tumor of other sites; I10 Essential (primary) hypertension; Z23 Encounter for immunization; E11.65 Type 2 diabetes mellitus with hyperglycemia
CPT/HCPCS: 36415; 49180; 74177; 77012; 80053; 81001; 82962; 83690; 85025; 85610; 85730; 88173; 88184; 88185; 88305; 88307; 88333; 88342; 90686; 96374; 96375; C9113; J1815; J1818; J2250; J2270; J2405; J3010; J7030; Q9967

== ENCOUNTER 2017-04-20 08:31 | Outpatient (CLI) | payer OTHER ==
--- NOTE | 2017-04-20 10:43 | Ultrasound Report ---
ULTRASOUND THYROID INDICATION: Malignant neuroendocrine tumors. COMPARISON: None similar. FINDINGS: Longitudinal and transverse grayscale and color-flow sonographic evaluation of the thyroid performed. RIGHT LOBE: Diffusely heterogeneous and asymmetrically enlarged at 6.1 x 4 x 3.7 cm with suspected solid nodule(s), dominant component approximately 3 x 1.8 x 1.7 cm in its midaspect as on image 14, amongst others. LEFT LOBE: Normal echogenicity with at least 2 small hypoechoic foci, one approximately 0.7 x 0.4 cm medially, image 34 appearing somewhat complex/solid while other approximately 0.5 cm focus laterally, images 26-28 appears mixed solid and cystic with slightly irregular spence. No demonstratable hypervascularity. Homogenous isthmus, approximately 0.7 cm AP and slight asymmetrically prominent/thickened towards the right. CONCLUSION: Asymmetrically prominent/enlarged, heterogeneous right thyroid lobe in this patient with bilateral thyroid nodules, as described. Thank you for the opportunity to participate in this patient's care.
== END 2017-04-20 08:32 | disposition home or self-care (01) ==
LOC: US 08:31
PROVIDERS: ATTEND Internal Medicine Hematology
DX: E04.2 Nontoxic multinodular goiter (principal); C7A.8 Other malignant neuroendocrine tumors
CPT/HCPCS: 76536

== ENCOUNTER 2017-05-29 12:03 | Day surgery (SDC) | payer OTHER ==
[2017-05-29 14:12] VITALS: BP 149/92
--- NOTE | 2017-05-29 14:58 | History and Physical Report ---
History of Present Illness Date of examination: 05/29/17 Chief complaint: rt thyroid mass History of present illness: chronic Medications and Allergies Allergies Allergy/AdvReac Type Severity Reaction Status Date / Time aspirin AdvReac Nausea Unverified 04/20/17 08:32 Home Medications Medication Instructions Recorded Confirmed Last Taken Type Canagliflozin [Invokana] 100 mg PO QDAY 03/09/17 05/29/17 05/28/17 History 100mg Fenofibrate [Tricor] 145 mg PO QHS 03/09/17 05/29/17 05/28/17 History 145mg Glimepiride [Amaryl] 4 mg PO QDAY 03/09/17 05/29/17 05/28/17 History 4mg Lisinopril [Zestril] 40 mg PO QDAY 03/09/17 05/29/17 05/28/17 History 40mg Saxagliptin HCl/Metformin HCl 1 tab PO QDAY 03/09/17 05/29/17 05/28/17 History [Kombiglyze XR 2.5-1,000 mg] 1 tab Tadalafil [Cialis] 5 mg PO QDAY 03/09/17 05/29/17 03/27/17 History 5mg Exam Vital Signs Temp Pulse Resp BP Pulse Ox 97.8 F 79 18 140/87 98 05/29/17 12:25 05/29/17 12:25 05/29/17 12:25 05/29/17 12:25 05/29/17 12:25
--- NOTE | 2017-05-29 15:00 | Procedure Note ---
Date of procedure: 05/29/17 Pre-op diagnosis: thyroid mass Post-op diagnosis: same Procedure: thyroid asp/bx Findings: solid tissue Anesthesia: local Surgeon: SONAM PARKER Estimated blood loss: none Pathology: list (tr. thyoid tissue) Specimen disposition: to lab Condition: stable Disposition: observation
--- NOTE | 2017-05-29 15:05 | Ultrasound Report ---
Ultrasound-guided thyroid biopsy: Right neck mass. Prior ultrasound in April 2017. Imaging of the right thyroid lobe demonstrates significant enlargement measuring 3.3 x 4.7 x 6.7 cm. It is diffusely inhomogeneous with several solid masses of decreased attenuation. The largest of these is noted centrally measuring approximately 3.3 cm in size. The skin was cleansed and 1% lidocaine used for local anesthesia. Under ultrasound guidance aspiration was performed 5-gauge needle. A biopsy was then performed with a Rotex needle. The attending pathologist indicated that adequate sampling had been obtained. The patient was discharged to observation with no apparent complication.
== END 2017-05-29 14:35 | disposition home or self-care (01) ==
LOC: CATHLABREC 12:03
PROVIDERS: ATTEND Internal Medicine Hematology
DX: E07.9 Disorder of thyroid, unspecified (principal); Z79.899 Other long term (current) drug therapy; Z88.8 Allergy status to other drugs, medicaments and biological substances
CPT/HCPCS: 60100; 76942; 88112; 88172; 88173; 88305

== ENCOUNTER 2017-08-24 11:32 | Outpatient (CLI) | payer OTHER ==
[2017-08-24 14:01] LABS: Free T4 (Free Thyroxine) 0.9 ng/dL (0.76-1.46)
== END 2017-08-24 11:33 | disposition home or self-care (01) ==
LOC: LAB 11:32
PROVIDERS: ATTEND Surgery
DX: E04.2 Nontoxic multinodular goiter (principal)
CPT/HCPCS: 36415; 84439; 84443

== ENCOUNTER 2017-09-01 07:57 | Observation (INO) | payer OTHER ==
[~2017-09-01 07:57] MED LIST: ANCEF/STERILE WATER 2 GM/20 ML IV NR
--- NOTE | 2017-09-01 09:23 | Anesthesia Day of Surgery ---
Anesthesia Day of Surgery - Day of Surgery Patient Examined: Yes Patient H&P Reviewed: Yes Patient is NPO: Yes
--- NOTE | 2017-09-01 09:23 | Anesthesia Consultation ---
Anesthesia Consult and Med Hx Date of service: 09/01/17 - Airway Anesthetic Teeth Evaluation: Good ROM Head & Neck: Adequate Mental/Hyoid Distance: Adequate Mallampati Class: Class II Intubation Access Assessment: Probably Good - Pulmonary Exam CTA: Yes - Cardiac Exam Cardiac Exam: RRR - Pre-Operative Health Status ASA Pre-Surgery Classification: ASA3 Proposed Anesthetic Plan: General - Pulmonary Hx Smoking: Yes (FOR 5 YEARS, QUIT OVER 30 YEARS AGO) Hx Sleep Apnea: No - Cardiovascular System Hx Hypertension: Yes (9 YEARS) - Central Nervous System Hx Psychiatric Problems: No - Endocrine Hx Non-Insulin Dependent Diabetes: Yes - Other Systems Hx Alcohol Use: Yes (SOCIALLY) Hx Substance Use: No Hx Cancer: No
[2017-09-01] MEDS: NACL 0.9% 1000 ML 1,000 ML IV SCH ×3 (09:37→21:40)
[2017-09-01] MEDS ORDERED: ANTIBIOTIC OINT TP ONE (09:38)
[2017-09-01] MEDS ORDERED: XYLOCAINE 1%/ EPI 1:100,000 INFILTRATI ONE (09:38)
[2017-09-01] MEDS ORDERED: XYLOCAINE MPF 2% ONE (09:50)
[2017-09-01] MEDS ORDERED: QUELICIN ONE (09:50)
[2017-09-01] MEDS ORDERED: SUBLIMAZE ONE ×2 (09:50→12:26)
[2017-09-01] MEDS ORDERED: DIPRIVAN 10 MG/ML IV ONE ×2 (09:51→11:51)
[2017-09-01] MEDS ORDERED: VERSED IV NR (10:00)
[2017-09-01] MEDS ORDERED: ANCEF/STERILE WATER 2 GM/20 ML IV NR (10:00)
[2017-09-01] MEDS ORDERED: PEPCID PO NR (10:00)
[2017-09-01] MEDS ORDERED: MARCAINE 0.25% INFILTRATI ONE ×2 (10:38→10:55)
[2017-09-01] MEDS ORDERED: NACL 0.9% IR ONE (10:59)
[2017-09-01] MEDS ORDERED: DECADRON ONE (11:45)
[2017-09-01] MEDS ORDERED: NACL 0.9% 1000 ML 1,000 ML ONE (12:41)
[2017-09-01] MEDS ORDERED: TYLENOL PO PRN (12:56)
[2017-09-01] MEDS ORDERED: ZOFRAN IV PRN (12:56)
[2017-09-01] MEDS ORDERED: PERCOCET 5/325 PO PRN (12:56)
[2017-09-01] MEDS ORDERED: MORPHINE IV PRN ×2 (12:56→22:02)
--- NOTE | 2017-09-01 13:22 | Operative Report ---
Operative Report Operative Report: Date of procedure: 09/01/2017 Pre-operative diagnosis: Multinodular goiter Post-operative diagnosis: Same Procedure name(s): Subtotal thyroidectomy Surgeon: Rojelio Vu MD Compressor Operator: Anish Cantrell M.D. Anesthesia: General, 0.25% Marcaine EBL: 350 mL Complications: None Instrument Count: Correct Indications: This is a 51-year-old male with a history of enlarging thyroid consistent with a goiter. He Was offered the above-named procedures possible treatment modality. The risks and benefits were discussed, including but not limited to bleeding, infection, injury to adjacent structures, hoarseness, nerve damage, and need for tracheostomy. The patient wished to proceed. Written and verbal consent was obtained. Findings: As above Procedure: We reviewed the informed consent. Patient was then placed supine upon the table. After adequate anesthesia was reached, we assured that the nerve stimulating endotracheal tube was positioned with the electrodes next to the vocal cords. The ground was applied to the shoulder. Patient was then prepped and draped in the usual sterile fashion in a semi-hernandez position. We just used local anesthetic. We then made a skin incision along the skin line in the neck several fingerbreadths above the sternal notch. Using electrocautery, we dissected down through the platysma muscle. This was grasped -2 using Allis clamps and we created a flap superiorly and inferiorly. Strap muscles were identified and we them along the midline. This exposed the thyroid gland. Beginning on the largest of the 2 sides on the right , we began dissecting the superior pole of the thyroid. This was grasped and the attached vessels were using a Harmonic Scalpel. Care was taken to identify and preserve the parathyroid at this location. The gland was noted to be extremely vascular, with oozing from several sites. This limited the visualization. The superior laryngeal nerve was also off of the gland. We turned our attention to the inferior pole and again the parathyroid gland was identified and preserved. Due to the size of the gland, I decided to split the strap muscles will allow better exposure. We all attached vessels and muscle attachments freeing this pole and allowing us to rotate the gland medially. Due to the oozing, we were unable to identify the recurrent laryngeal nerve and kept our dissection of the gland away from this structure. The ligament of Merritt was dissected free. We then turned our attention to the contralateral side and began dissecting along the superior pole. Again the parathyroid at this location was identified and preserved and the attached vessels were using a Harmonic Scalpel. Once the pole was completely dissected free we turned our attention to the inferior pole, dissecting free the parathyroid and attached vessels. This allowed us to medially rotate the gland and give us access to the recurrent laryngeal nerve. We transected the gland well away from the nerve to ensure no injury occurred. The gland was then tagged and sent to pathology for further evaluation. We placed Surgicel pieces within the fossa on either side to aid in hemostasis. There was no active bleeding noted. We then repaired and approximated the strap muscles using a 3-0 Vicryl in a running fashion. The platysma was approximated using 3- 0 Vicryl in a running fashion. The skin was approximated using a 4-0 Monocryl in a period the wound was bandaged sterilely. The patient tolerated the procedure well. He Was awakened, extubated deep with visualization of both vocal cords to ensure movement bilaterally which was noted by both anesthesia and surgery, indicating no nerve injury. He was transferred to recovery room in no apparent distress.
[2017-09-01] MEDS ORDERED: D50W (25GM) Syringe IV PRN (13:25)
[2017-09-01] MEDS ORDERED: NORMODYNE IV ONE ×3 (13:51→15:00)
[2017-09-01] MEDS: DILAUDID IV PRN ×4 (14:08→14:52)
[2017-09-01] MEDS ORDERED: DILAUDID ONE (14:09)
[2017-09-01] MEDS ORDERED: ZOFRAN ONE (14:28)
[2017-09-01] MEDS ORDERED: NEO SYNEPHRINE/NS Syringe(OR USE) IV ONE (14:28)
[2017-09-01] MEDS ORDERED: APRESOLINE ONE (15:01)
[2017-09-01] MEDS ORDERED: APRESOLINE IV ONE (15:03)
[2017-09-01] MEDS: MORPHINE IV PRN ×2 (16:13→22:28)
[2017-09-02 00:48] LABS: Alanine Aminotransferase 14 units/L (7-56); Albumin 3.9 g/dL (3.9-5); BUN/Creatinine Ratio 20; Blood Urea Nitrogen 14 mg/dL (9-20); Calcium 10.1 mg/dL (8.4-10.2); Hemolysis Index 6
[2017-09-02] MEDS: MORPHINE IV PRN ×2 (06:32→12:49)
[2017-09-02 09:14] VITALS: BP 157/84
[2017-09-02] MEDS ORDERED: ZESTRIL PO SCH (10:00)
[2017-09-02] MEDS ORDERED: AMARYL PO SCH (10:00)
[2017-09-02] MEDS: NACL 0.9% 1000 ML 1,000 ML IV SCH (12:56)
--- NOTE | 2017-09-02 15:40 | Progress Note ---
Assessment and Plan - Patient Problems (1) S/P subtotal thyroidectomy Current Visit: Yes Status: Acute Plan to address problem: patient doing well without evidence of postop complications will discharge home see orders Subjective Date of service: 09/02/17 Patient Reports: Positive: no new complaints, other (tolerating diet; no difficulty breathing or swallowing; no hoarseness) Objective Vital Signs - 12hr 09/02/17 09/02/17 09/02/17 06:26 08:00 12:49 Temperature 98.8 F 98.6 F Pulse Rate 89 90 Respiratory 18 18 18 Rate Blood Pressure 161/87 157/84 [Right] O2 Sat by Pulse 100 99 Oximetry - General physical appearance well developed, no distress - Neck trachea midline, other (Incision clean an ddry; no swelling noted) - Respiratory clear to auscultation - Labs 09/02/17 00:08 Diabetes panel 09/02/17 Range/Units 00:08 Sodium 140 (137-145) mmol/L Potassium 4.4 (3.6-5.0) mmol/L Chloride 101.5 (98-107) mmol/L Carbon Dioxide 23 (22-30) mmol/L BUN 14 (9-20) mg/dL Creatinine 0.7 L (0.8-1.5) mg/dL Glucose 188 H (75-100) mg/dL Calcium 10.1 (8.4-10.2) mg/dL AST 13 (5-40) units/L ALT 14 (7-56) units/L Alkaline Phosphatase 48 (35-129) units/L Total Protein 6.5 (6.3-8.2) g/dL Albumin 3.9 (3.9-5) g/dL Calcium panel 09/02/17 Range/Units 00:08 Calcium 10.1 (8.4-10.2) mg/dL Albumin 3.9 (3.9-5) g/dL Pituitary panel 09/02/17 Range/Units 00:08 Sodium 140 (137-145) mmol/L Potassium 4.4 (3.6-5.0) mmol/L Chloride 101.5 (98-107) mmol/L Carbon Dioxide 23 (22-30) mmol/L BUN 14 (9-20) mg/dL Creatinine 0.7 L (0.8-1.5) mg/dL Glucose 188 H (75-100) mg/dL Calcium 10.1 (8.4-10.2) mg/dL Adrenal panel 09/02/17 Range/Units 00:08 Sodium 140 (137-145) mmol/L Potassium 4.4 (3.6-5.0) mmol/L Chloride 101.5 (98-107) mmol/L Carbon Dioxide 23 (22-30) mmol/L BUN 14 (9-20) mg/dL Creatinine 0.7 L (0.8-1.5) mg/dL Glucose 188 H (75-100) mg/dL Calcium 10.1 (8.4-10.2) mg/dL Total Bilirubin 0.40 (0.1-1.2) mg/dL AST 13 (5-40) units/L ALT 14 (7-56) units/L Alkaline Phosphatase 48 (35-129) units/L Total Protein 6.5 (6.3-8.2) g/dL Albumin 3.9 (3.9-5) g/dL
--- NOTE | 2017-09-02 15:49 | Discharge Summary ---
Providers - Providers Date of Admission: 09/01/17 12:56 Attending physician: SHERMAN CASSIDY Primary care physician: NORMAN LU Hospitalization Reason for admission: postop observation Condition: Good Procedures: subtotal thyroidectomy see op note Hospital course: did well postop without difficulty breathing,swallowing or hoarseness Disposition: DC-01 TO HOME OR SELFCARE - Discharge Diagnoses (1) S/P subtotal thyroidectomy Status: Acute Core Measure Documentation - Palliative Care Palliative Care/ Comfort Measures: Not Applicable - Core Measures Any of the following diagnoses?: none Exam - Constitutional Vitals: Temp Pulse Resp BP Pulse Ox 98.6 F 90 18 157/84 99 09/02/17 08:00 09/02/17 08:00 09/02/17 12:49 09/02/17 08:00 09/02/17 08:00 General appearance: Present: no acute distress - Neck Neck: Present: supple, normal ROM, other (incision clean an dry) Plan Activity: no restrictions Diet: regular Wound: open to air, other (May shower and wash incision in am) Follow up with: NORMAN LU MD [Primary Care Provider] - 7 Days SHERMAN CASSIDY MD [Staff Physician] - 7 Days Prescriptions: Calcium Carbonate [Oscal] 500 mg PO BID #42 tablet Levothyroxine Nicu (10 Mcg/ml) [Synthroid Nicu] 10 mcg PO QDAY #30 ml oxyCODONE /ACETAMINOPHEN [Percocet 5/325] 1 - 2 tab PO Q6HR PRN #40 tablet PRN Reason: Pain Promethazine [Phenergan TAB] 25 mg PO Q6HR PRN #10 tab PRN Reason: Nausea
[2017-09-03] MEDS ORDERED: AMARYL PO SCH (08:00)
== END 2017-09-02 18:00 | disposition home or self-care (01) ==
LOC: OR 07:57 → 3B-SURG 12:56
PROVIDERS: ADMIT Surgery; ATTEND Surgery
DX: E04.2 Nontoxic multinodular goiter (principal); I10 Essential (primary) hypertension; E11.9 Type 2 diabetes mellitus without complications; D64.9 Anemia, unspecified; Z87.891 Personal history of nicotine dependence
CPT/HCPCS: 36415; 60212; 80053; 82962; 88307; 96372; 96374; 96375; 96376; G0378; J0330; J0360; J0690; J1100; J1170; J2250; J2270; J2370; J2405; J2704; J3010; J7030; J1815

== ENCOUNTER 2022-04-06 19:49 | Emergency (ER) | payer BC, OTHER ==
[2022-04-06 22:00] LABS: Basophils # (Auto) 0.1 K/mm3 (0.0-0.1); Basophils % (Auto) 0.7 % (0.0-1.8); Eosinophils # (Auto) 0.1 K/mm3 (0.0-0.4); Eosinophils % (Auto) 0.5 % (0.0-4.3); Hematocrit 42.7 % (35.5-45.6); Hemoglobin 14.6 gm/dl (11.8-15.2); Lymphocytes # (Auto) 1.7 K/mm3 (1.2-5.4); Lymphocytes % (Auto) 16.6 % (13.4-35.0); Mean Corpuscular HGB Conc 34 % (32-34); Mean Corpuscular Volume 91 fl (84-94); Monocytes # (Auto) 0.6 K/mm3 (0.0-0.8); Monocytes % (Auto) 5.6 % (0.0-7.3); Platelet Count 253 K/mm3 (140-440); Red Blood Count 4.69 M/mm3 (3.65-5.03); Red Cell Distribution Width 12.4 % (13.2-15.2)
--- NOTE | 2022-04-06 22:07 | XRay Report ---
CHEST 2 VIEWS INDICATION / CLINICAL INFORMATION: Chest Pain. COMPARISON: None available. FINDINGS: SUPPORT DEVICES: None. HEART / MEDIASTINUM: No significant abnormality. LUNGS / PLEURA: No significant pulmonary abnormality. No significant pleural effusion. No pneumothora x. ADDITIONAL FINDINGS: No significant additional findings. IMPRESSION: 1. No acute abnormality of the chest. Signer Name: Jerald Valentino MD Signed: 04/06/2022 10:02 PM Workstation Name: [id number]
[2022-04-07] MEDS ORDERED: ALUM-MAG HYDROXIDE-SIMETHICONE 200-200-20MG/5ML ORAL LIQD 30 ML PO ONE (02:13)
[2022-04-07] MEDS ORDERED: LIDOCAINE VISCOUS 2% 15 ML ORAL LIQD PO ONE (02:14)
[2022-04-07 03:21] LABS: Alanine Aminotransferase 13 units/L (7-56); Albumin 4.2 g/dL (3.9-5); Blood Urea Nitrogen 16 mg/dL (9-20); Calcium 10.4 mg/dL (8.4-10.2); Hemolysis Index 6
[2022-04-07 03:27] LABS: BUN/Creatinine Ratio 23
--- NOTE | 2022-04-07 04:44 | Emergency Department Report ---
ED Chest Pain HPI - General Chief Complaint: Chest Pain Stated Complaint: CHEST PAIN Time Seen by Provider: 04/07/22 04:36 Source: patient Mode of arrival: Ambulatory Limitations: No Limitations - History of Present Illness Initial Comments: Patient is a 66-year-old presenting to ED with complaint of chest pain beginning Thursday. The pain is in the lower left chest and described as an aching sensation. Pain exacerbated with palpation of the area. He denies any fever, chills, nausea or vomiting. Reports remote history of abdominal mass that was surgically removed. - Related Data Home Medications Medication Instructions Recorded Confirmed Last Taken Canagliflozin [Invokana] 100 mg PO QDAY 03/09/17 09/01/17 08/31/17 100 mg Fenofibrate [Tricor] 145 mg PO QHS 03/09/17 09/01/17 08/31/17 145 mg Glimepiride [Amaryl] 4 mg PO QDAY 03/09/17 09/01/17 08/31/17 4 mg Lisinopril [Zestril] 40 mg PO QDAY 03/09/17 09/01/17 08/31/17 40 mg Saxagliptin HCl/Metformin HCl 1 tab PO QDAY 03/09/17 09/01/17 08/31/17 [Kombiglyze XR 2.5-1,000 mg] Tadalafil [Cialis] 5 mg PO QDAY 03/09/17 08/27/17 03/27/17 5 mg Aspirin [Aspir-Low] 81 mg PO DAILY 08/27/17 09/01/17 08/31/17 Saxagliptin HCl/Metformin HCl 1 tab PO DAILY 08/27/17 09/01/17 08/31/17 [Kombiglyze XR 2.5-1,000 mg] Previous Rx's Medication Instructions Recorded Last Taken Type Calcium Carbonate [Oscal] 500 mg PO BID #42 tablet 09/02/17 Unknown Rx Levothyroxine Nicu (10 Mcg/ml) 10 mcg PO QDAY #30 ml 09/02/17 Unknown Rx [Synthroid Nicu] Promethazine [Phenergan TAB] 25 mg PO Q6HR PRN #10 tab 09/02/17 Unknown Rx oxyCODONE /ACETAMINOPHEN [Percocet 1 - 2 tab PO Q6HR PRN #40 tablet 09/02/17 Unknown Rx 5/325] Allergies Allergy/AdvReac Type Severity Reaction Status Date / Time aspirin AdvReac STOMACH Verified 08/27/17 10:58 ULCERS Heart Score - HEART Score History: Slightly suspicious EKG: Normal Age: 45-65 Risk factors: 1-2 risk factors Troponin: < normal limit HEART Score: 2 - EKG Read Time Time EKG Completed: 20:19 EKG Read Time: 20:23 - Critical Actions Critical Actions: 0-3 pts:0.9-1.7%risk of adverse cardiac event.Candidate for discharge ED Review of Systems ROS: Stated complaint: CHEST PAIN Other details as noted in HPI Constitutional: denies: chills, fever Respiratory: denies: cough, shortness of breath, wheezing Cardiovascular: denies: chest pain, palpitations Gastrointestinal: abdominal pain. denies: nausea, vomiting Musculoskeletal: denies: back pain, joint swelling, arthralgia Skin: denies: rash, lesions Neurological: denies: headache, weakness, paresthesias Psychiatric: denies: anxiety, depression ED Past Medical Hx - Past Medical History Hx Hypertension: Yes (9 YEARS) Hx Diabetes: Yes (7 YEARS) Hx HIV: No Additional medical history: Gastric ulcers - Surgical History Hx Breast Surgery: Yes (BX) - Social History Smoking Status: Never Smoker Substance Use Type: None - Medications Home Medications: Home Medications Medication Instructions Recorded Confirmed Last Taken Type Canagliflozin [Invokana] 100 mg PO QDAY 03/09/17 09/01/17 08/31/17 History 100 mg Fenofibrate [Tricor] 145 mg PO QHS 03/09/17 09/01/17 08/31/17 History 145 mg Glimepiride [Amaryl] 4 mg PO QDAY 03/09/17 09/01/17 08/31/17 History 4 mg Lisinopril [Zestril] 40 mg PO QDAY 03/09/17 09/01/17 08/31/17 History 40 mg Saxagliptin HCl/Metformin HCl 1 tab PO QDAY 03/09/17 09/01/17 08/31/17 History [Kombiglyze XR 2.5-1,000 mg] Tadalafil [Cialis] 5 mg PO QDAY 03/09/17 08/27/17 03/27/17 History 5 mg Aspirin [Aspir-Low] 81 mg PO DAILY 08/27/17 09/01/17 08/31/17 History Saxagliptin HCl/Metformin HCl 1 tab PO DAILY 08/27/17 09/01/17 08/31/17 History [Kombiglyze XR 2.5-1,000 mg] Calcium Carbonate [Oscal] 500 mg PO BID #42 tablet 09/02/17 Unknown Rx Levothyroxine Nicu (10 Mcg/ml) 10 mcg PO QDAY #30 ml 09/02/17 Unknown Rx [Synthroid Nicu] Promethazine [Phenergan TAB] 25 mg PO Q6HR PRN #10 tab 09/02/17 Unknown Rx oxyCODONE /ACETAMINOPHEN [Percocet 1 - 2 tab PO Q6HR PRN #40 tablet 09/02/17 Unknown Rx 5/325] ED Physical Exam - General Limitations: No Limitations General appearance: alert, in no apparent distress - Head Head exam: Present: atraumatic, normocephalic - Respiratory Respiratory exam: Present: normal lung sounds bilaterally. Absent: respiratory distress - Cardiovascular Cardiovascular Exam: Present: regular rate, normal rhythm, normal heart sounds - GI/Abdominal GI/Abdominal exam: Present: soft. Absent: distended, tenderness - Rectal Rectal exam: Present: deferred - Neurological Exam Neurological exam: Present: alert, oriented X3 - Psychiatric Psychiatric exam: Present: normal affect, normal mood - Skin Skin exam: Present: warm, dry, intact, normal color ED Course Vital Signs 04/06/22 04/07/22 04/07/22 21:24 02:10 02:16 Temperature 98.9 F 98.7 F Pulse Rate 103 H 92 H 99 H Respiratory 18 17 19 Rate Blood Pressure 191/101 170/97 Blood Pressure 168/97 [Left] O2 Sat by Pulse 99 97 96 Oximetry 04/07/22 04/07/22 04/07/22 02:30 02:46 03:00 Temperature Pulse Rate 98 H 96 H 96 H Respiratory 22 16 14 Rate Blood Pressure 184/94 183/92 156/92 Blood Pressure [Left] O2 Sat by Pulse 97 96 96 Oximetry ED Medical Decision Making - Lab Data Result diagrams: 04/06/22 21:55 04/07/22 02:50 - EKG Data -: EKG Interpreted by [place] EKG shows normal: sinus rhythm, axis, intervals - EKG Data Interpretation: LVH - Medical Decision Making Chest x-ray unremarkable. No acute findings on EKG. Labs including 2 sets of troponins are unremarkable. On reassessment patient sleeping comfortably in bed. Upon awakening states his symptoms are improved. Heart score is 2. Patient stable for discharge home with PCP follow-up in 1 to 2 weeks. Critical care attestation.: If time is entered above; I have spent that time in minutes in the direct care of this critically ill patient, excluding procedure time. ED Disposition Clinical Impression: Acute nonspecific chest pain with low risk of coronary artery disease Disposition: 01 HOME / SELF CARE / HOMELESS Is pt being admited?: No Condition: Stable Instructions: Chest Pain (ED), Nonspecific Chest Pain, Adult, [id number] Additional Instructions: Please follow-up with your regular doctor within 1 to 2 weeks. You may return if your symptoms worsen.
[2022-04-07 05:44] VITALS: BP 169/96
--- NOTE | 2022-04-11 12:28 | Electrocardiograph Report ---
[facility] Test Date: 2022-04-06 Test Time: 20:19:52 Pat Name: ALISHA AMBROSIO Department: Room: Gender: M [employer] Service Specialist: SEAN : 1965 Requested By: AMANDA MOLINA Order Number: [id number] Reading MD: Nik Mckeon Measurements Intervals [place] Rate: 102 P: 67 WV: 171 QRS: 54 QRSD: 80 T: 79 QT: 340 QTc: 443 Interpretive Statements Sinus tachycardia Probable left atrial enlargement Probable left ventricular hypertrophy Anterior Q waves, possibly due to LVH No previous ECG available for comparison Electronically Signed On 04-11-2022 9:28:05 PDT by Nik Mckeon
== END 2022-04-07 05:15 | disposition home or self-care (01) ==
LOC: ED 19:49
DX: R07.9 Chest pain, unspecified (principal); Z91.09 Other allergy status, other than to drugs and biological substances
CPT/HCPCS: 36415; 71046; 80053; 84484; 85025; 93005; 99283